=== PATIENT | female | born 1985 | race Caucasian/White ===

== ENCOUNTER 2019-01-04 05:02 | Inpatient (IN) | payer OTHER ==
[~2019-01-04 05:02] MED LIST: BICITRA 30 ML CUP PO SCH; CEFAZOLIN 2 GM-D5W BAG** 2 GM/50 ML ML IV SCH; Lactated Ringers 1,000 ML IV SCH; Pepcid 20 MG VIAL IV SCH; Reglan 10 MG/2 ML IV SCH
[2019-01-04 05:39] LABS: Hematocrit 36.3 % (35-47); Hemoglobin 11.9 gm/dl (12.0-16.0); Mean Cell Volume 90.8 fl (78-100); Mean Corpuscular Hgb Concent. 32.8 g/dl (32-36); Mean Platelet Volume 13.1 fl (6-9.5); Platelet Count 193 K/mm3 (150-450); Red Cell Distribution Width 13.7 % (11.5-14.0); White Blood Count 9.7 K/mm3 (4.0-10.5)
[2019-01-04 05:44] LABS: Mean Corpuscular Hemoglobin 29.7 pg (26-32)
[2019-01-04 05:50] LABS: Appearance CLOUDY (CLEAR); Bacteria MODERATE /HPF (NEGATIVE); Bilirubin NEGATIVE (NEGATIVE); Blood NEGATIVE Ery/ul (0-5); Epithelial Cells FEW /HPF (FEW); Glucose NEGATIVE (NEGATIVE); Ketones NEGATIVE (NEGATIVE); Leukocyte Esterase LARGE (NEGATIVE); Mucus SLIGHT /HPF (NEGATIVE); Nitrite NEGATIVE (NEGATIVE); Protein,Urine Dip 30 (Negative); Specific Gravity 1.021 (1.005-1.025); Urobilinogen NEGATIVE mg/dL (0-1); WBC 26-50 /HPF (0-5)
[2019-01-04 05:54] LABS: INR 0.89 (0.8-3.0); PROTIME 10.3 SECONDS (9.95-12.35)
[2019-01-04 05:55] LABS: Amphetamine,Urine NEGATIVE (NEGATIVE); Barbiturate,Urine NEGATIVE (NEGATIVE); Benzodiazepine,Urine NEGATIVE (NEGATIVE); Cocaine,Urine NEGATIVE (NEGATIVE); Methadone,Urine NEGATIVE (NEGATIVE); Opiate,Urine NEGATIVE (NEGATIVE); PCP,Urine NEGATIVE (NEGATIVE); THC,Urine NEGATIVE (NEGATIVE)
[2019-01-04 05:57] LABS: PTT 26.1 SECONDS (25.3-37.0)
[2019-01-04] MEDS ORDERED: Sodium Chloride 0.9% 10 ML FLUSH Syringe IJ PRN (06:00)
[2019-01-04] MEDS ORDERED: Lactated Ringers 1,000 ML IV SCH (06:00)
[2019-01-04 06:19] LABS: Slide Review YES
[2019-01-04] MEDS ORDERED: Lactated Ringers 1,000 ML IV ONE (06:21)
[2019-01-04 06:27] LABS: ABO TYPING O; Antibody Screen NEGATIVE (NEGATIVE); RH TYPING POSITIVE
[2019-01-04] MEDS ORDERED: Phenergan 25 MG INJ IM PRN (07:00)
[2019-01-04] MEDS ORDERED: TYLENOL EXTRA STRENGTH 500 MG PO PRN (07:00)
[2019-01-04] MEDS ORDERED: Zofran 4 MG/2 ML VIAL IV PRN (08:00)
[2019-01-04] MEDS ORDERED: MORPHINE SULFATE 2 MG INJ IV PRN (08:00)
[2019-01-04] MEDS ORDERED: Anucort-HC SUPPOSITORY PR PRN (08:00)
[2019-01-04] MEDS ORDERED: Dermoplast Spray TP PRN (08:00)
[2019-01-04] MEDS ORDERED: Narcan 0.4 MG/ML IV PRN (08:00)
[2019-01-04] MEDS ORDERED: Dulcolax 10 MG SUPP PR PRN (08:00)
[2019-01-04] MEDS ORDERED: BENADRYL 50 MG/ML IV PRN (08:00)
[2019-01-04] MEDS ORDERED: LANSINOH 40 GM TOP PRN (08:00)
[2019-01-04] MEDS ORDERED: CORTISONE 1% CREAM TP PRN (08:00)
[2019-01-04] MEDS ORDERED: CLARITIN 10 MG PO PRN (08:00)
[2019-01-04] MEDS ORDERED: Nubain 10 MG/ML IV PRN (08:00)
[2019-01-04] MEDS ORDERED: DEMEROL 50 MG IV PRN (08:00)
[2019-01-04] MEDS ORDERED: TUCKS TP PRN (08:00)
[2019-01-04] MEDS ORDERED: DEMEROL 50 MG ONE (08:18)
--- NOTE | 2019-01-04 08:55 | OP ---
SURGERY DATE/TIME: 01/04/2019 0703 PREOPERATIVE DIAGNOSES: 1) Term intrauterine . 2) History of prior section. POSTOPERATIVE DIAGNOSES: 1) Term intrauterine . 2) History of prior section. PROCEDURE: Repeat low transverse section. SURGEON: Edin York M.D. ESTIMATED BLOOD LOSS: 300 cc. IV FLUIDS: 1200 cc of crystalloid. URINE OUTPUT: 5 ml of clear straw-colored urine. ANESTHESIA: Spinal by Kurtis Torres CRNA. SPECIMENS: None. DESCRIPTION OF PROCEDURE: After informed written consent was obtained, the patient was taken to the operating room. She underwent spinal anesthesia and was prepped and draped in the usual sterile fashion. A skin incision was made by knife and carried down through the subcutaneous fat to the level of the fascia. The fascia was nicked on both sides of the midline and extended in horizontal fashion using curved Spencer scissors. The superior free edge of the fascia was grasped with Herman clamps and the underlying rectus muscles were dissected free. The same was repeated inferiorly. The peritoneal cavity was then opened and extended in horizontal fashion. Bladder blade was inserted and bladder flap was created and reflected over the lower uterine segment. A horizontal uterine incision was made by knife and carried down to the level of the amniotic membranes which were carefully artificially ruptured and extended horizontally. A viable male infant was delivered from the vertex presentation. Oropharynx and nares was bulb suctioned free. He had a strong cry on the field. The cord was clamped and cut and he was handed off to the awaiting nursery team. The placenta was manually extracted from the uterus and the uterus was exteriorized. The uterine cavity was sponge curetted clean with lap sponge. The uterine incision was closed with #1 chromic in a running locked fashion. Good closure and good hemostasis were achieved. The posterior cul-de-sac was suctioned free of blood and clot. Moist lap sponge was used to cleanse posterior cul-de-sac and the uterus was returned to the peritoneal cavity. Lateral gutters were wiped free of blood and clot. Then the uterine incision was inspected and noted to have good closure and good hemostasis. Next, the fascia was closed with 0 Vicryl in a running fashion. Good closure and good hemostasis were achieved. The subcutaneous fat was irrigated with warm, sterile saline. Interrupted 2-0 Vicryl sutures were placed in the subcutaneous fat to close the space. Finally the skin layer was closed with 4-0 undyed Vicryl in a running subcuticular fashion. Steri-Strips and occlusive dressing were placed over the incision. The patient was transferred to the recovery in good condition.
[2019-01-04] MEDS ORDERED: Ambien 10 MG PO PRN (09:00)
[2019-01-04] MEDS: Dextrose 5%-Lr IV Solution 1000 ML 1,000 ML IV SCH ×2 (09:43→17:24)
[2019-01-04] MEDS ORDERED: ASTRAMORPH IJ ONE (10:09)
[2019-01-04] MEDS ORDERED: Zofran 4 MG/2 ML VIAL IV ONE (14:16)
[2019-01-04] MEDS ORDERED: Decadron 4 MG INJ IV ONE (14:16)
[2019-01-04] MEDS ORDERED: Pitocin 10 UNITS/ML IV ONE (14:16)
[2019-01-04] MEDS ORDERED: TORAdol 30 mg Injection IJ ONE (14:16)
[2019-01-04] MEDS ORDERED: LIDOCAINE HCL 2% 100 MG/5 ML IJ ONE (14:16)
[2019-01-04] MEDS ORDERED: Astramorph-Pf 5 MG/10 ML IJ ONE (14:16)
[2019-01-04] MEDS ORDERED: Adacel Vial IM ONE (18:00)
[2019-01-04] MEDS: MOTRIN 400 MG PO PRN (18:26)
[2019-01-04] MEDS: Colace 100 MG PO SCH (22:12)
[2019-01-04] MEDS: PERCOCET TABLET 5/325MG PO PRN (22:13)
[2019-01-05 04:07] VITALS: O2SAT 97
[2019-01-05] MEDS: PERCOCET TABLET 5/325MG PO PRN (05:08)
[2019-01-05 05:56] LABS: BASOPHIL % 0.2 % (0.0-0.4); Basophil (Absolute #) 0.02 (0-0.4); Eosinophil % 0.2 % (0.00-5.0); Eosinophil (Absolute #) 0.02 (0-0.5); Granulocyte Absolute (ANC) 10.11 (1.4-6.9); Granulocytes % 75.8 % (36.0-66.0); Hematocrit 30.9 % (35-47); Lymphocyte (Absolute #) 2.19 (1.0-4.6); Lymphocytes % 16.4 % (24.0-44.0); Mean Cell Volume 92.5 fl (78-100); Mean Corpuscular Hemoglobin 29.9 pg (26-32); Mean Corpuscular Hgb Concent. 32.4 g/dl (32-36); Mean Platelet Volume 13.5 fl (6-9.5); Monocyte (Absolute #) 0.98 (0.0-1.3); Monocytes % 7.4 % (0.0-12.0); Platelet Count 164 K/mm3 (150-450); Red Blood Count 3.34 M/mm3 (4.1-5.4); Red Cell Distribution Width 13.7 % (11.5-14.0); White Blood Count 13.3 K/mm3 (4.0-10.5)
[2019-01-05] MEDS: Colace 100 MG PO SCH ×2 (09:31→22:59)
[2019-01-05] MEDS: FERREX 150 PO SCH (09:31)
[2019-01-05] MEDS: MOTRIN 400 MG PO PRN ×2 (09:32→22:59)
[2019-01-05] MEDS: NORCO 5/325 MG PO PRN ×2 (14:51→20:11)
[2019-01-06] MEDS: NORCO 5/325 MG PO PRN ×2 (02:26→08:44)
[2019-01-06] MEDS: MOTRIN 400 MG PO PRN (05:06)
--- NOTE | 2019-01-06 08:31 | PCM.DS ---
Discharge Summary Date of Admission: 01/04/19 05:02 Admitting Physician: VIVIENNE DIAZ Consults: Consults on Case 01/04/19 00:01 Notify Anesthesia Provider ROUTINE Notify Physician OF ADMISSION Primary Care Provider: VIVIENNE DIAZ Allergies Allergies No Known Drug Allergies Allergy (Verified 01/04/19 05:17) Hospital Summary - Hospital Course Hospital Course: had repeat on 01/04/19, tolerating po, mild lochia and pain is controlled at this time. she is breasfeeding and well bonded - Vitals & Intake/Output Vital Signs: Vital Signs Temperature 98.0 F 01/06/19 02:00 Pulse Rate 86 01/06/19 02:00 Respiratory Rate 18 01/06/19 02:00 Blood Pressure 134/85 01/06/19 02:00 O2 Sat by Pulse Oximetry 97 01/05/19 05:00 Intake & Output: Intake & Output 01/03/19 01/04/19 01/05/19 01/06/19 11:59 11:59 11:59 11:59 Output Total 4350 Balance -4350 Weight 86.183 kg - Lab Result Diagrams: 01/05/19 05:20 Micro Results-Entire Visit: Microbiology 01/04/19 07:25 Urine Culture - Final Clean Catch Midstream NO GROWTH - Procedures and Test Procedures and Tests throughout Hospitalization: Therapy Orders & Screens 01/04/19 12:28 Standby Routine Comment: Diagnosis: IUP R C/S Discharge Exam General Appearance: no apparent distress, alert Respiratory Exam: normal breath sounds, lungs clear, No respiratory distress Cardiovascular Exam: regular rate/rhythm, normal heart sounds Gastrointestinal/Abdomen Exam: soft, other (incision clean,dry, intact), No tenderness, No mass Extremity Exam: normal inspection, normal range of motion Final Diagnosis/Problem List - Final Discharge Diagnosis/Problem (1) delivery delivered Current Visit: Yes Status: Acute (2) Mother currently breast-feeding Current Visit: Yes Status: Acute - Discharge Disposition: Home, Self-Care Condition: Stable Prescriptions: New Hydrocodone Bit/Acetaminophen [[place] 7.5-325 Tablet] 1 each PO Q4-6HPRN PRN # 30 tablet PRN Reason: Pain Continue Vits W-Ca,Fe,FA(<1Mg) [] 1 tab PO DAILY Discontinued D-Methorphan/PE/Acetaminophen [Tylenol Cold Max Day Caplet] 1 tab PO Q4HPRN PRN PRN Reason: Sinus Drainage Diphenhydramine HCl 12.5 mg/5* [Benadryl 12.5 mg/5 ml] 1 tab PO HS PRN PRN Reason: Sleep Follow up with: VIVIENNE DIAZ MD [Primary Care Provider] - 1 Week
[2019-01-06] MEDS: Colace 100 MG PO SCH (08:43)
[2019-01-06] MEDS: FERREX 150 PO SCH (08:44)
[2019-01-06 10:55] VITALS: BP 148/90; PULSE 84
== END 2019-01-06 10:10 | disposition home or self-care (01) | DRG 788 ==
LOC: OB 05:02
PROVIDERS: ADMIT Family Medicine; ATTEND Family Medicine
PROC: 10D00Z1 Extraction of Products of Conception, Low, Open Approach (ICD-10-PCS; principal; 2019-01-04)
DX: O34.211 Maternal care for low transverse scar from previous cesarean delivery (principal); Z3A.39 39 weeks gestation of pregnancy; Z37.0 Single live birth
CPT/HCPCS: 36415; 64488; 76942; 80307; 81001; 85025; 85027; 85610; 85730; 86850; 86900; 86901; 87086; 94799; J0690; J1100; J1885; J2175; J2274; J2405; J2590; L0625; A9270-GY

== ENCOUNTER 2021-02-06 21:52 | Observation (INO) | payer OTHER ==
[2021-02-06] MEDS ORDERED: Sodium Chloride 0.9% 1000 ML 1,000 ML ONE (22:10)
[2021-02-06] MEDS ORDERED: Magnesium 1 Gm / 100 Ml D5W*** 200 ML IV ONE (22:17)
[2021-02-06] MEDS ORDERED: BABY ASPIRIN 81 MG CHEW PO ONE (22:27)
[2021-02-06] MEDS ORDERED: Sodium Chloride 0.9% 1000 ML 1,000 ML IV STA (22:27)
[2021-02-06] MEDS: Magnesium 1 Gm / 100 Ml D5W*** 100 ML IV SCH ×2 (22:44→23:23)
[2021-02-06 22:46] LABS: Absolute Neutrophil Ct (ANC) 7.41 (1.4-6.9); BASOPHIL % 0.3 % (0.0-0.4); Basophil (Absolute #) 0.03 (0-0.4); Eosinophil % 1.6 % (0.00-5.0); Eosinophil (Absolute #) 0.19 (0-0.5); Hematocrit 42.5 % (35-47); Hemoglobin 13.5 gm/dl (12.0-16.0); Lymphocyte (Absolute #) 3.36 (1.0-4.6); Mean Cell Volume 91.6 fl (78-100); Mean Corpuscular Hemoglobin 29.1 pg (26-32); Mean Corpuscular Hgb Concent. 31.8 g/dl (32-36); Mean Platelet Volume 11.3 fl (7.5-11.0); Monocyte (Absolute #) 1.01 (0.0-1.3); Monocytes % 8.4 % (0.0-12.0); Neutrophil % 61.7 % (36.0-66.0); Platelet Count 308 K/mm3 (150-450); Red Blood Count 4.64 M/mm3 (4.1-5.4); Red Cell Distribution Width 14.3 % (11.5-14.0)
[2021-02-06 22:54] LABS: INR 0.98 (0.8-3.0); PROTIME 11.1 SECONDS (9.95-12.35)
[2021-02-06 22:57] LABS: PTT 34.1 SECONDS (25.3-37.0)
[2021-02-06 23:05] LABS: D-DIMER QUANTITATIVE < 215 ng/mL (215-500)
[2021-02-06 23:09] LABS: ALBUMIN 4.6 g/dL (3.5-5.0); ALKALINE PHOSPHATASE 74 U/L (38-126); ANION GAP 12.8 MEQ/L (5-15); BLOOD UREA NITROGEN 12 mg/dL (7-17); CHLORIDE 99 mmol/L (98-107); Carbon Dioxide 29 mmol/L (22-30); Creatinine 1 0.69 mg/dL (0.52-1.04); EST GLOMERULAR FILTRATION RATE > 60.0 ML/MIN; Glucose 98 mg/dL (74-106); MAGNESIUM 2.1 mg/dL (1.6-2.3); NT PRO BNP 56.9 pg/mL (0-450); Potassium 3.2 mmol/L (3.5-5.1); SGOT/AST 23 U/L (14-36); SGPT/ALT 23 U/L (0-35); SODIUM 138 mmol/L (137-145); Total Protein 7.7 g/dL (6.3-8.2)
[2021-02-06] MEDS ORDERED: CARDIZEM DRIP 100 MG/100 ML D5W 100 ML IV PRN (23:15)
[2021-02-06] MEDS ORDERED: Klor Con 10 MEQ PO ONE ×2 (23:15→23:28)
--- NOTE | 2021-02-06 23:42 | ERPHSYRPT ---
- History of Present Illness Time Seen by Provider: 02/06/21 21:59 Historian: patient Exam Limitations: no limitations Patient Subjective Stated Complaint: "My heart is pounding." Triage Nursing Assessment: Patient reported having palpitations and chest pressure at home. Denied past history. Denied true pain stating "it's more like a fluttering." Denied dizziness, headache, shortness of breath, loss of consciousness. Denied similar events. Physician History: 35 years old female presented in the ER with chief complaint of sudden onset palpitation and chest pressure prior to arrival. Patient report her heart rate was bouncing between 80-1 60s with minimal shortness of breath at times. She is feeling weird and tired. Denies any fever or chills. Denies any history of thyroid problems. Does not report taking excessive caffeinated/energy drinks than usual. No history of atrial fibrillation/flutter. Timing/Duration: today, sudden Activities at Onset: rest Quality: pressure Location: substernal Chest Pain Radiation: no radiation Severity of Pain-Max: mild Severity of Pain-Current: mild Modifying Factors: Improves With: nothing Associated Symptoms: palpitations Prior Chest Pain/Cardiac Workup: no prior chest pain, no prior cardiac workup Nitro Today/Relief: no nitro taken today Aspirin Treatment Today: no aspirin today Allergies/Adverse Reactions: No Known Drug Allergies Allergy (Verified 02/06/21 22:12) Home Medications: Escitalopram Oxalate 10 mg [Lexapro 10 MG] 1 tab PO DAILY 02/06/21 [History] Hx Tetanus, Diphtheria Vaccination/Date Given: Yes Hx Influenza Vaccination/Date Given: Yes Hx Pneumococcal Vaccination/Date Given: No Travel Risk - International Travel Have you traveled outside of the country in past 3 weeks: No - Coronavirus Screening Are you exhibiting any of the following symptoms?: No Close contact with a COVID-19 positive Pt in past 14-21 Days: No - Review of Systems Constitutional: No Symptoms Eyes: No Symptoms Ears, Nose, & Throat: No Symptoms Respiratory: No Symptoms Cardiac: Palpitations Abdominal/Gastrointestinal: No Symptoms Genitourinary Symptoms: No Symptoms Musculoskeletal: No Symptoms Skin: No Symptoms Neurological: No Symptoms Psychological: No Symptoms Endocrine: No Symptoms Hematologic/Lymphatic: No Symptoms Immunological/Allergic: No Symptoms - Past Medical History Pertinent Past Medical History: No Musculoskeletal History: No Pertinent History GI Medical History: Irritable Bowel History: No Pertinent History Psycho-Social History: Anxiety Female Reproductive Disorders: No Pertinent History - Past Surgical History Past Surgical History: Yes Neuro Surgical History: No Pertinent History Cardiac: No Pertinent History Respiratory: No Pertinent History Gastrointestinal: Cholecystectomy Female Surgical History: Section Other Surgical History: tonsils - Social History Smoking Status: Former smoker How long have you smoked: 10 Years Exposure to second hand smoke: No Alcohol Use: Socially Drug Use: none Patient Lives Alone: No Significant Family History: no pertinent family hx - Female History Hx Now: (unkn) - Nursing Vital Signs Nursing Vital Signs: Initial Vital Signs Temperature 98.5 F 02/06/21 21:52 Pulse Rate 180 H 02/06/21 21:52 Respiratory Rate 20 02/06/21 21:52 Blood Pressure 136/89 02/06/21 21:52 O2 Sat by Pulse Oximetry 100 02/06/21 21:52 Pain Scale Pain Intensity 0 - Physical Exam General Appearance: no apparent distress, alert, anxiety Eye Exam: PERRL/EOMI, eyes nml inspection Ears, Nose, Throat Exam: normal ENT inspection, TMs normal, pharynx normal Neck Exam: normal inspection, non-tender, supple, full range of motion Respiratory Exam: normal breath sounds Cardiovascular Exam: tachycardia, irregular Back Exam: normal inspection, normal range of motion Extremity Exam: normal inspection, normal range of motion Neurologic Exam: alert, oriented x 3, cooperative, member certification manager II-XII nml as tested Skin Exam: normal color SpO2 Interpretation: normal SpO2: 100 O2 Delivery: Room Air - Course EKG Interpreted by Me: RATE ([id number]), Sinus Tach, NORMAL AXIS, NORMAL INTERVALS, NORMAL QRS (2nd EKG; rate 148. Irregular, ST depression in lateral leads......... third EKG. Rate 145, irregular, ST depression in lateral leads.) Ordered Tests: Medication Summary Discontinued Medications Generic Name Dose Route Start Last Admin Trade Name Freq PRN Reason Stop Dose Admin Acetaminophen 650 mg 02/07/21 03:39 Tylenol 325 Mg PO 03/09/21 03:38 Q4H PRN PRN PAIN AND/OR FEVER Aspirin 324 mg 02/06/21 22:27 02/06/21 22:47 Baby Aspirin 81 Mg Chew PO 02/06/21 22:28 324 mg STAT ONE Administration Escitalopram Oxalate 10 mg 02/07/21 10:00 02/07/21 10:21 Lexapro 10 Mg PO 03/09/21 09:59 Not Given DAILY MARCUS Escitalopram Oxalate 10 mg 02/07/21 22:00 Lexapro 10 Mg PO 03/09/21 21:59 HS MARCUS Sodium Chloride Confirm 02/06/21 22:10 Sodium Chloride 0.9% 1000 Ml Administered 02/06/21 22:11 Dose 1,000 mls @ ud .ROUTE .STK-MED ONE Magnesium Sulfate/Dextrose Confirm 02/06/21 22:17 Magnesium 1 Gm / 100 Ml D5w Administered 02/06/21 22:18 Dose 200 mls @ ud IV .STK-MED ONE Sodium Chloride 1,000 mls @ 999 mls/hr 02/06/21 22:27 02/06/21 23:55 Sodium Chloride 0.9% 1000 Ml IV 02/06/21 23:27 Infused .Q1H1M STA Infusion Magnesium Sulfate/Dextrose 100 mls @ 100 mls/hr 02/06/21 22:45 02/06/21 23:23 Magnesium 1 Gm / 100 Ml D5w IV 02/07/21 00:44 100 mls/hr Q1H MARCUS Administration Diltiazem HCl 100 mls @ 5 mls/hr 02/06/21 23:15 02/07/21 06:14 Cardizem Drip 100 Mg/100 Ml D5w IV 03/08/21 23:14 5 mg/hr .Q20H PRN 5 mls/hr HEART RATE/ A-FIB Titration Protocol 5 MG/HR Sodium Chloride 1,000 mls @ 125 mls/hr 02/06/21 23:45 02/07/21 06:14 Sodium Chloride 0.9% 1000 Ml IV 03/08/21 23:44 125 mls/hr .Q8H MARCUS Infusion Metoprolol Succinate 25 mg 02/07/21 07:00 02/07/21 07:45 Toprol-Xl 25mg Tablets PO 02/07/21 07:01 25 mg STAT ONE Administration Pantoprazole Sodium 40 mg 02/07/21 10:00 02/07/21 10:17 Protonix 40 Mg Iv IV 03/09/21 09:59 40 mg Q24H10 MARCUS Administration Potassium Chloride 40 meq 02/06/21 23:15 02/06/21 23:30 Klor Con 10 Meq PO 02/06/21 23:16 40 meq STAT ONE Administration Potassium Chloride Confirm 02/06/21 23:28 Klor Con 10 Meq Administered 02/06/21 23:29 Dose 40 meq PO .STK-MED ONE Lab/Rad Data: Laboratory Result Diagrams 02/06/21 22:04 02/06/21 22:04 Laboratory Results 02/07/21 02/06/21 02/06/21 Range/Units 00:35 22:04 22:04 WBC (4.0-10.5) K/mm3 RBC (4.1-5.4) M/mm3 Hgb (12.0-16.0) gm/dl Hct (35-47) % MCV (78-100) fl MCH (26-32) pg MCHC (32-36) g/dl RDW (11.5-14.0) % Plt Count (150-450) K/mm3 MPV (7.5-11.0) fl Gran % (36.0-66.0) % Eos # (Auto) (0-0.5) Absolute Lymphs (auto) (1.0-4.6) Absolute Monos (auto) (0.0-1.3) Lymphocytes % (24.0-44.0) % Monocytes % (0.0-12.0) % Eosinophils % (0.00-5.0) % Basophils % (0.0-0.4) % Absolute Granulocytes (1.4-6.9) Basophils # (0-0.4) PT (9.95-12.35) SECONDS INR (0.8-3.0) APTT (25.3-37.0) SECONDS D-Dimer (215-500) ng/mL Sodium (137-145) mmol/L Potassium (3.5-5.1) mmol/L Chloride (98-107) mmol/L Carbon Dioxide (22-30) mmol/L Anion Gap (5-15) MEQ/L BUN (7-17) mg/dL Creatinine (0.52-1.04) mg/dL Estimated GFR ML/MIN Glucose (74-106) mg/dL Calcium (8.4-10.2) mg/dL Magnesium (1.6-2.3) mg/dL Total Bilirubin (0.2-1.3) mg/dL AST (14-36) U/L ALT (0-35) U/L Alkaline Phosphatase (38-126) U/L Troponin I < 0.012 (0.000-0.034) ng/mL NT-Pro-B Natriuret Pep (0-450) pg/mL Serum Total Protein (6.3-8.2) g/dL Albumin (3.5-5.0) g/dL TSH 3rd Generation 1.420 (0.47-4.68) mIU/L Influenza Type A Ag NEGATIVE (NEGATIVE) Influenza Type B Ag NEGATIVE (NEGATIVE) RSV (PCR) NEGATIVE (Negative) SARS-CoV-2 (PCR) NEGATIVE (NEGATIVE) 02/06/21 02/06/21 02/06/21 Range/Units 22:04 22:04 22:04 WBC 12.0 H (4.0-10.5) K/mm3 RBC 4.64 (4.1-5.4) M/mm3 Hgb 13.5 (12.0-16.0) gm/dl Hct 42.5 (35-47) % MCV 91.6 (78-100) fl MCH 29.1 (26-32) pg MCHC 31.8 L (32-36) g/dl RDW 14.3 H (11.5-14.0) % Plt Count 308 (150-450) K/mm3 MPV 11.3 H (7.5-11.0) fl Gran % 61.7 (36.0-66.0) % Eos # (Auto) 0.19 (0-0.5) Absolute Lymphs (auto) 3.36 (1.0-4.6) Absolute Monos (auto) 1.01 (0.0-1.3) Lymphocytes % 28.0 (24.0-44.0) % Monocytes % 8.4 (0.0-12.0) % Eosinophils % 1.6 (0.00-5.0) % Basophils % 0.3 (0.0-0.4) % Absolute Granulocytes 7.41 H (1.4-6.9) Basophils # 0.03 (0-0.4) PT 11.1 (9.95-12.35) SECONDS INR 0.98 (0.8-3.0) APTT 34.1 (25.3-37.0) SECONDS D-Dimer < 215 L (215-500) ng/mL Sodium 138 (137-145) mmol/L Potassium 3.2 L (3.5-5.1) mmol/L Chloride 99 (98-107) mmol/L Carbon Dioxide 29 (22-30) mmol/L Anion Gap 12.8 (5-15) MEQ/L BUN 12 (7-17) mg/dL Creatinine 0.69 (0.52-1.04) mg/dL Estimated GFR > 60.0 ML/MIN Glucose 98 (74-106) mg/dL Calcium 10.0 (8.4-10.2) mg/dL Magnesium 2.1 (1.6-2.3) mg/dL Total Bilirubin 0.20 (0.2-1.3) mg/dL AST 23 (14-36) U/L ALT 23 (0-35) U/L Alkaline Phosphatase 74 (38-126) U/L Troponin I (0.000-0.034) ng/mL NT-Pro-B Natriuret Pep 56.9 (0-450) pg/mL Serum Total Protein 7.7 (6.3-8.2) g/dL Albumin 4.6 (3.5-5.0) g/dL TSH 3rd Generation (0.47-4.68) mIU/L Influenza Type A Ag (NEGATIVE) Influenza Type B Ag (NEGATIVE) RSV (PCR) (Negative) SARS-CoV-2 (PCR) (NEGATIVE) - Progress Progress: improved Air Movement: good Progress Note: 02/07/21 00:21 35 years old is evaluated for palpitations and chest pressure. Patient was in sinus tach on presentation. Repeated EKG showed questionable paroxysmal A. fib/flutter but she is converting back to sinus quickly. She is given IV fluid bolus and 2 g of mag. Her heart rate was jumping between 90-1 60 and I have started her on Cardizem and her heart rate is currently in the 90s and repeat EKG is normal sinus rhythm. Work-up showed white count of 12, mildly low potassium and is given replacement with negative troponins and D-dimers. Discussed with Dr. York, recommended cardiology consult. I have discussed with [facility] cardiology Dr. Block who is okay either way patient in here or transferring. I have discussed with patient who wants to stay here, I have discussed again with Dr. York and patient is admitted here. Blood Culture(s) Obtained: No Antibiotics given: No Discussed with DrBecky: Jef Will see patient in: hospital (observation) Counseled pt/family regarding: lab results, diagnosis, rad results - Departure Departure Disposition: Observation Clinical Impression: Palpitations Condition: Stable Critical Care Time: Yes Critical Care Time(excluding separately billable procedures): Critical 30-74 mins
[2021-02-06] MEDS ORDERED: Sodium Chloride 0.9% 1000 ML 1,000 ML IV SCH (23:45)
[2021-02-07 01:16] LABS: INFLUENZA A NEGATIVE (NEGATIVE); INFLUENZA B NEGATIVE (NEGATIVE); RESPIRATORY SYNCTIAL VIRUS NEGATIVE (Negative)
[2021-02-07] MEDS ORDERED: TYLENOL 325 MG PO PRN (03:39)
[2021-02-07 05:04] LABS: ALBUMIN 3.9 g/dL (3.5-5.0); ALKALINE PHOSPHATASE 61 U/L (38-126); ANION GAP 8.1 MEQ/L (5-15); Absolute Neutrophil Ct (ANC) 4.98 (1.4-6.9); BASOPHIL % 0.4 % (0.0-0.4); BLOOD UREA NITROGEN 9 mg/dL (7-17); Basophil (Absolute #) 0.03 (0-0.4); CHLORIDE 105 mmol/L (98-107); Calcium 8.7 mg/dL (8.4-10.2); Carbon Dioxide 30 mmol/L (22-30); Creatinine 1 0.71 mg/dL (0.52-1.04); EST GLOMERULAR FILTRATION RATE > 60.0 ML/MIN; Eosinophil % 1.8 % (0.00-5.0); Eosinophil (Absolute #) 0.15 (0-0.5); Glucose 102 mg/dL (74-106); Hematocrit 39.8 % (35-47); Hemoglobin 12.5 gm/dl (12.0-16.0); Lymphocytes % 29.2 % (24.0-44.0); Mean Corpuscular Hemoglobin 29.2 pg (26-32); Mean Corpuscular Hgb Concent. 31.4 g/dl (32-36); Mean Platelet Volume 11.2 fl (7.5-11.0); Monocyte (Absolute #) 0.67 (0.0-1.3); Monocytes % 8.1 % (0.0-12.0); Neutrophil % 60.5 % (36.0-66.0); Platelet Count 259 K/mm3 (150-450); Red Blood Count 4.28 M/mm3 (4.1-5.4); Red Cell Distribution Width 14.2 % (11.5-14.0); SGOT/AST 19 U/L (14-36); SGPT/ALT 20 U/L (0-35); SODIUM 138 mmol/L (137-145); Total Protein 6.6 g/dL (6.3-8.2); White Blood Count 8.2 K/mm3 (4.0-10.5)
--- NOTE | 2021-02-07 06:45 | PCM.HP ---
History of Present Illness - Chief Complaint Chief Complaint: palpitations History of Present Illness: is a 35 year old female who developed sudden onset of palpitations and felt heavy in her chest while resting on her couch last night, she noted her heart rate was 170's, attempted valsalva with no improvement so came to ER. She feels normal now with heart rate controlled on cardizem drip, she has no prior history of cardiac issues or rhythm problems. She has no complaints today. no major changes in caffeine intake, usually has 1 serving/day on average. - Review of Systems Constitutional: No Fever, No Chills Ears, Nose, & Throat: No Symptoms Cardiac: Palpitations Abdominal/Gastrointestinal: No Abdominal Pain, No Nausea, No Vomiting, No Diarrhea Skin: No Rash Neurological: No Dizziness, No Focal Weakness, No Sensory Changes Psychological: No Symptoms All Other Systems: Reviewed and Negative Medications & Allergies Home Medications: Home Medication List Dextroamphetamine/Amphetamine [Adderall Xr 30 mg Capsule] 1 tab PO DAILY 02/06/21 [History Confirmed 02/07/21] Escitalopram Oxalate 10 mg [Lexapro 10 MG] 1 tab PO DAILY 02/06/21 [History Confirmed 02/07/21] Allergies/Adverse Reactions: Allergies Allergy/AdvReac Type Severity Reaction Status Date / Time No Known Drug Allergies Allergy Verified 02/06/21 22:12 - Past Medical History Past Medical History: No Neurological History: No Pertinent History Cardiac History: No Pertinent History Respiratory History: No Pertinent History Endocrine Medical History: No Pertinent History Musculoskelatal History: No Pertinent History GI Medical History: Irritable Bowel History: No Pertinent History Pyscho-Social History: Anxiety Reproductive Disorders: No Pertinent History Comment: post depression - Female History Hx Last Menstrual Period: 02/06/2021 Are you now?: No (unkn) - Past Surgical History Past Surgical History: Yes Neuro Surgical History: No Pertinent History Cardiac History: No Pertinent History Respiratory Surgery: No Pertinent History GI Surgical History: Cholecystectomy Female Surgical History: Section Other Surgical History: tonsils - Social History Smoking Status: Former smoker How long have you smoked: 10 Years Exposure to second hand smoke: No Alcohol: Occasionally Drug Use: none Significant Family History: no pertinent family hx - Physical Exam Vital Signs: Vital Signs - 24 hr Temp Pulse Pulse Resp BP BP Pulse Ox 02/07/21 06:00 89 21 125/76 97 02/07/21 05:00 98.4 F 89 19 118/82 98 02/07/21 04:05 97.6 F 89 18 122/81 100 02/07/21 03:25 71 110/75 96 02/07/21 03:23 71 110/75 96 02/07/21 02:12 72 108/64 97 02/07/21 01:12 75 127/88 98 02/07/21 00:25 100 02/07/21 00:07 88 139/79 100 02/06/21 23:40 88 16 114/97 02/06/21 23:06 111 H 130/88 100 02/06/21 21:52 98.5 F 180 H 180 H 20 136/89 100 General Appearance: no apparent distress, alert Neurologic Exam: alert, oriented x 3, cooperative, normal mood/affect, nml cerebellar function, nml station & gait, sensation nml, No motor deficits Respiratory Exam: normal breath sounds, lungs clear, No respiratory distress Cardiovascular Exam: regular rate/rhythm, normal heart sounds, normal peripheral pulses Gastrointestinal/Abdomen Exam: soft, normal bowel sounds, No tenderness, No mass Extremity Exam: normal inspection, normal range of motion, pelvis stable Skin Exam: normal color, warm, dry, No rash Results - Labs Lab/Micro Results: Lab Results-Last 24 Hours 02/06/21 02/06/21 02/06/21 Range/Units 22:04 22:04 22:04 WBC 12.0 H (4.0-10.5) K/mm3 RBC 4.64 (4.1-5.4) M/mm3 Hgb 13.5 (12.0-16.0) gm/dl Hct 42.5 (35-47) % MCV 91.6 (78-100) fl MCH 29.1 (26-32) pg MCHC 31.8 L (32-36) g/dl RDW 14.3 H (11.5-14.0) % Plt Count 308 (150-450) K/mm3 MPV 11.3 H (7.5-11.0) fl Gran % 61.7 (36.0-66.0) % Eos # (Auto) 0.19 (0-0.5) Absolute Lymphs (auto) 3.36 (1.0-4.6) Absolute Monos (auto) 1.01 (0.0-1.3) Lymphocytes % 28.0 (24.0-44.0) % Monocytes % 8.4 (0.0-12.0) % Eosinophils % 1.6 (0.00-5.0) % Basophils % 0.3 (0.0-0.4) % Absolute Granulocytes 7.41 H (1.4-6.9) Basophils # 0.03 (0-0.4) PT 11.1 (9.95-12.35) SECONDS INR 0.98 (0.8-3.0) APTT 34.1 (25.3-37.0) SECONDS D-Dimer < 215 L (215-500) ng/mL Sodium 138 (137-145) mmol/L Potassium 3.2 L (3.5-5.1) mmol/L Chloride 99 (98-107) mmol/L Carbon Dioxide 29 (22-30) mmol/L Anion Gap 12.8 (5-15) MEQ/L BUN 12 (7-17) mg/dL Creatinine 0.69 (0.52-1.04) mg/dL Estimated GFR > 60.0 ML/MIN Glucose 98 (74-106) mg/dL Calcium 10.0 (8.4-10.2) mg/dL Magnesium 2.1 (1.6-2.3) mg/dL Total Bilirubin 0.20 (0.2-1.3) mg/dL AST 23 (14-36) U/L ALT 23 (0-35) U/L Alkaline Phosphatase 74 (38-126) U/L Troponin I (0.000-0.034) ng/mL NT-Pro-B Natriuret Pep 56.9 (0-450) pg/mL Serum Total Protein 7.7 (6.3-8.2) g/dL Albumin 4.6 (3.5-5.0) g/dL TSH 3rd Generation (0.47-4.68) mIU/L Influenza Type A Ag (NEGATIVE) Influenza Type B Ag (NEGATIVE) RSV (PCR) (Negative) SARS-CoV-2 (PCR) (NEGATIVE) 02/06/21 02/06/21 02/07/21 Range/Units 22:04 22:04 00:35 WBC (4.0-10.5) K/mm3 RBC (4.1-5.4) M/mm3 Hgb (12.0-16.0) gm/dl Hct (35-47) % MCV (78-100) fl MCH (26-32) pg MCHC (32-36) g/dl RDW (11.5-14.0) % Plt Count (150-450) K/mm3 MPV (7.5-11.0) fl Gran % (36.0-66.0) % Eos # (Auto) (0-0.5) Absolute Lymphs (auto) (1.0-4.6) Absolute Monos (auto) (0.0-1.3) Lymphocytes % (24.0-44.0) % Monocytes % (0.0-12.0) % Eosinophils % (0.00-5.0) % Basophils % (0.0-0.4) % Absolute Granulocytes (1.4-6.9) Basophils # (0-0.4) PT (9.95-12.35) SECONDS INR (0.8-3.0) APTT (25.3-37.0) SECONDS D-Dimer (215-500) ng/mL Sodium (137-145) mmol/L Potassium (3.5-5.1) mmol/L Chloride (98-107) mmol/L Carbon Dioxide (22-30) mmol/L Anion Gap (5-15) MEQ/L BUN (7-17) mg/dL Creatinine (0.52-1.04) mg/dL Estimated GFR ML/MIN Glucose (74-106) mg/dL Calcium (8.4-10.2) mg/dL Magnesium (1.6-2.3) mg/dL Total Bilirubin (0.2-1.3) mg/dL AST (14-36) U/L ALT (0-35) U/L Alkaline Phosphatase (38-126) U/L Troponin I < 0.012 (0.000-0.034) ng/mL NT-Pro-B Natriuret Pep (0-450) pg/mL Serum Total Protein (6.3-8.2) g/dL Albumin (3.5-5.0) g/dL TSH 3rd Generation 1.420 (0.47-4.68) mIU/L Influenza Type A Ag NEGATIVE (NEGATIVE) Influenza Type B Ag NEGATIVE (NEGATIVE) RSV (PCR) NEGATIVE (Negative) SARS-CoV-2 (PCR) NEGATIVE (NEGATIVE) 02/07/21 02/07/21 02/07/21 Range/Units 01:37 04:41 04:41 WBC 8.2 (4.0-10.5) K/mm3 RBC 4.28 (4.1-5.4) M/mm3 Hgb 12.5 (12.0-16.0) gm/dl Hct 39.8 (35-47) % MCV 93.0 (78-100) fl MCH 29.2 (26-32) pg MCHC 31.4 L (32-36) g/dl RDW 14.2 H (11.5-14.0) % Plt Count 259 (150-450) K/mm3 MPV 11.2 H (7.5-11.0) fl Gran % 60.5 (36.0-66.0) % Eos # (Auto) 0.15 (0-0.5) Absolute Lymphs (auto) 2.40 (1.0-4.6) Absolute Monos (auto) 0.67 (0.0-1.3) Lymphocytes % 29.2 (24.0-44.0) % Monocytes % 8.1 (0.0-12.0) % Eosinophils % 1.8 (0.00-5.0) % Basophils % 0.4 (0.0-0.4) % Absolute Granulocytes 4.98 (1.4-6.9) Basophils # 0.03 (0-0.4) PT (9.95-12.35) SECONDS INR (0.8-3.0) APTT (25.3-37.0) SECONDS D-Dimer (215-500) ng/mL Sodium (137-145) mmol/L Potassium (3.5-5.1) mmol/L Chloride (98-107) mmol/L Carbon Dioxide (22-30) mmol/L Anion Gap (5-15) MEQ/L BUN (7-17) mg/dL Creatinine (0.52-1.04) mg/dL Estimated GFR ML/MIN Glucose (74-106) mg/dL Calcium (8.4-10.2) mg/dL Magnesium (1.6-2.3) mg/dL Total Bilirubin (0.2-1.3) mg/dL AST (14-36) U/L ALT (0-35) U/L Alkaline Phosphatase (38-126) U/L Troponin I < 0.012 < 0.012 (0.000-0.034) ng/mL NT-Pro-B Natriuret Pep (0-450) pg/mL Serum Total Protein (6.3-8.2) g/dL Albumin (3.5-5.0) g/dL TSH 3rd Generation (0.47-4.68) mIU/L Influenza Type A Ag (NEGATIVE) Influenza Type B Ag (NEGATIVE) RSV (PCR) (Negative) SARS-CoV-2 (PCR) (NEGATIVE) 02/07/21 Range/Units 04:41 WBC (4.0-10.5) K/mm3 RBC (4.1-5.4) M/mm3 Hgb (12.0-16.0) gm/dl Hct (35-47) % MCV (78-100) fl MCH (26-32) pg MCHC (32-36) g/dl RDW (11.5-14.0) % Plt Count (150-450) K/mm3 MPV (7.5-11.0) fl Gran % (36.0-66.0) % Eos # (Auto) (0-0.5) Absolute Lymphs (auto) (1.0-4.6) Absolute Monos (auto) (0.0-1.3) Lymphocytes % (24.0-44.0) % Monocytes % (0.0-12.0) % Eosinophils % (0.00-5.0) % Basophils % (0.0-0.4) % Absolute Granulocytes (1.4-6.9) Basophils # (0-0.4) PT (9.95-12.35) SECONDS INR (0.8-3.0) APTT (25.3-37.0) SECONDS D-Dimer (215-500) ng/mL Sodium 138 (137-145) mmol/L Potassium 5.0 D (3.5-5.1) mmol/L Chloride 105 (98-107) mmol/L Carbon Dioxide 30 (22-30) mmol/L Anion Gap 8.1 (5-15) MEQ/L BUN 9 (7-17) mg/dL Creatinine 0.71 (0.52-1.04) mg/dL Estimated GFR > 60.0 ML/MIN Glucose 102 (74-106) mg/dL Calcium 8.7 (8.4-10.2) mg/dL Magnesium (1.6-2.3) mg/dL Total Bilirubin 0.20 (0.2-1.3) mg/dL AST 19 (14-36) U/L ALT 20 (0-35) U/L Alkaline Phosphatase 61 (38-126) U/L Troponin I (0.000-0.034) ng/mL NT-Pro-B Natriuret Pep (0-450) pg/mL Serum Total Protein 6.6 (6.3-8.2) g/dL Albumin 3.9 (3.5-5.0) g/dL TSH 3rd Generation (0.47-4.68) mIU/L Influenza Type A Ag (NEGATIVE) Influenza Type B Ag (NEGATIVE) RSV (PCR) (Negative) SARS-CoV-2 (PCR) (NEGATIVE) - Radiology Impressions Radiology Exams & Impressions: Radiology Procedures Category Date Time Status CHEST 1 VIEW (PORTABLE) Stat Exams 02/06/21 22:27 Taken Assessment/Plan (1) SVT (supraventricular tachycardia) Current Visit: Yes Status: Acute Assessment & Plan: patient currently sinus with rate less than 100 on cardizem at 5mg/hr, plan to give po metoprolol dose and stop drip. will consult [facility], no obvious cause and SVT was sustained. if returns may need to consider adenosine Code(s): I47.1 - SUPRAVENTRICULAR TACHYCARDIA
[2021-02-07] MEDS ORDERED: Toprol-Xl 25MG Tablets PO ONE (07:00)
--- NOTE | 2021-02-07 09:12 | XRAY ---
Indication: Palpitations. Comparison: None Portable chest demonstrates normal heart, lungs, and bony thorax.
[2021-02-07] MEDS ORDERED: PROTONIX 40 MG IV IV SCH (10:00)
[2021-02-07] MEDS ORDERED: Lexapro 10 MG PO SCH ×2 (10:00→22:00)
[2021-02-07 14:14] VITALS: BP 97/64; PULSE 69
--- NOTE | 2021-02-07 15:43 | PCM.DS ---
Discharge Summary Date of Admission: 02/07/21 01:36 Admitting Physician: VIVIENNE DIAZ Consults: Consults on Case 02/07/21 06:40 Consult Cardiology ROUTINE Primary Care Provider: VIVIENNE DIAZ Allergies Allergies No Known Drug Allergies Allergy (Verified 02/06/21 22:12) Hospital Summary - Hospital Course Hospital Course: patient arrived with new onset svt, converted with cardizem gtt, discontinued and changed to metoprolol - Vitals & Intake/Output Vital Signs: Vital Signs Temperature 97.9 F 02/07/21 12:00 Pulse Rate 69 02/07/21 14:00 Respiratory Rate 19 02/07/21 14:00 Blood Pressure 97/64 02/07/21 14:00 O2 Sat by Pulse Oximetry 98 02/07/21 14:00 Intake & Output: Intake & Output 02/05/21 02/06/21 02/07/21 02/08/21 11:59 11:59 11:59 11:59 Intake Total 1061 240 Output Total 1450 700 Balance -389 -460 Weight 81.6 kg - Lab Result Diagrams: 02/07/21 04:41 02/07/21 04:41 Lab Results-Last 24 Hrs: Lab Results-Last 24 Hours 02/06/21 02/06/21 02/06/21 Range/Units 22:04 22:04 22:04 WBC 12.0 H (4.0-10.5) K/mm3 RBC 4.64 (4.1-5.4) M/mm3 Hgb 13.5 (12.0-16.0) gm/dl Hct 42.5 (35-47) % MCV 91.6 (78-100) fl MCH 29.1 (26-32) pg MCHC 31.8 L (32-36) g/dl RDW 14.3 H (11.5-14.0) % Plt Count 308 (150-450) K/mm3 MPV 11.3 H (7.5-11.0) fl Gran % 61.7 (36.0-66.0) % Eos # (Auto) 0.19 (0-0.5) Absolute Lymphs (auto) 3.36 (1.0-4.6) Absolute Monos (auto) 1.01 (0.0-1.3) Lymphocytes % 28.0 (24.0-44.0) % Monocytes % 8.4 (0.0-12.0) % Eosinophils % 1.6 (0.00-5.0) % Basophils % 0.3 (0.0-0.4) % Absolute Granulocytes 7.41 H (1.4-6.9) Basophils # 0.03 (0-0.4) PT 11.1 (9.95-12.35) SECONDS INR 0.98 (0.8-3.0) APTT 34.1 (25.3-37.0) SECONDS D-Dimer < 215 L (215-500) ng/mL Sodium 138 (137-145) mmol/L Potassium 3.2 L (3.5-5.1) mmol/L Chloride 99 (98-107) mmol/L Carbon Dioxide 29 (22-30) mmol/L Anion Gap 12.8 (5-15) MEQ/L BUN 12 (7-17) mg/dL Creatinine 0.69 (0.52-1.04) mg/dL Estimated GFR > 60.0 ML/MIN Glucose 98 (74-106) mg/dL Calcium 10.0 (8.4-10.2) mg/dL Magnesium 2.1 (1.6-2.3) mg/dL Total Bilirubin 0.20 (0.2-1.3) mg/dL AST 23 (14-36) U/L ALT 23 (0-35) U/L Alkaline Phosphatase 74 (38-126) U/L Troponin I (0.000-0.034) ng/mL NT-Pro-B Natriuret Pep 56.9 (0-450) pg/mL Serum Total Protein 7.7 (6.3-8.2) g/dL Albumin 4.6 (3.5-5.0) g/dL TSH 3rd Generation (0.47-4.68) mIU/L Influenza Type A Ag (NEGATIVE) Influenza Type B Ag (NEGATIVE) RSV (PCR) (Negative) SARS-CoV-2 (PCR) (NEGATIVE) 02/06/21 02/06/21 02/07/21 Range/Units 22:04 22:04 00:35 WBC (4.0-10.5) K/mm3 RBC (4.1-5.4) M/mm3 Hgb (12.0-16.0) gm/dl Hct (35-47) % MCV (78-100) fl MCH (26-32) pg MCHC (32-36) g/dl RDW (11.5-14.0) % Plt Count (150-450) K/mm3 MPV (7.5-11.0) fl Gran % (36.0-66.0) % Eos # (Auto) (0-0.5) Absolute Lymphs (auto) (1.0-4.6) Absolute Monos (auto) (0.0-1.3) Lymphocytes % (24.0-44.0) % Monocytes % (0.0-12.0) % Eosinophils % (0.00-5.0) % Basophils % (0.0-0.4) % Absolute Granulocytes (1.4-6.9) Basophils # (0-0.4) PT (9.95-12.35) SECONDS INR (0.8-3.0) APTT (25.3-37.0) SECONDS D-Dimer (215-500) ng/mL Sodium (137-145) mmol/L Potassium (3.5-5.1) mmol/L Chloride (98-107) mmol/L Carbon Dioxide (22-30) mmol/L Anion Gap (5-15) MEQ/L BUN (7-17) mg/dL Creatinine (0.52-1.04) mg/dL Estimated GFR ML/MIN Glucose (74-106) mg/dL Calcium (8.4-10.2) mg/dL Magnesium (1.6-2.3) mg/dL Total Bilirubin (0.2-1.3) mg/dL AST (14-36) U/L ALT (0-35) U/L Alkaline Phosphatase (38-126) U/L Troponin I < 0.012 (0.000-0.034) ng/mL NT-Pro-B Natriuret Pep (0-450) pg/mL Serum Total Protein (6.3-8.2) g/dL Albumin (3.5-5.0) g/dL TSH 3rd Generation 1.420 (0.47-4.68) mIU/L Influenza Type A Ag NEGATIVE (NEGATIVE) Influenza Type B Ag NEGATIVE (NEGATIVE) RSV (PCR) NEGATIVE (Negative) SARS-CoV-2 (PCR) NEGATIVE (NEGATIVE) 02/07/21 02/07/21 02/07/21 Range/Units 01:37 04:41 04:41 WBC 8.2 (4.0-10.5) K/mm3 RBC 4.28 (4.1-5.4) M/mm3 Hgb 12.5 (12.0-16.0) gm/dl Hct 39.8 (35-47) % MCV 93.0 (78-100) fl MCH 29.2 (26-32) pg MCHC 31.4 L (32-36) g/dl RDW 14.2 H (11.5-14.0) % Plt Count 259 (150-450) K/mm3 MPV 11.2 H (7.5-11.0) fl Gran % 60.5 (36.0-66.0) % Eos # (Auto) 0.15 (0-0.5) Absolute Lymphs (auto) 2.40 (1.0-4.6) Absolute Monos (auto) 0.67 (0.0-1.3) Lymphocytes % 29.2 (24.0-44.0) % Monocytes % 8.1 (0.0-12.0) % Eosinophils % 1.8 (0.00-5.0) % Basophils % 0.4 (0.0-0.4) % Absolute Granulocytes 4.98 (1.4-6.9) Basophils # 0.03 (0-0.4) PT (9.95-12.35) SECONDS INR (0.8-3.0) APTT (25.3-37.0) SECONDS D-Dimer (215-500) ng/mL Sodium (137-145) mmol/L Potassium (3.5-5.1) mmol/L Chloride (98-107) mmol/L Carbon Dioxide (22-30) mmol/L Anion Gap (5-15) MEQ/L BUN (7-17) mg/dL Creatinine (0.52-1.04) mg/dL Estimated GFR ML/MIN Glucose (74-106) mg/dL Calcium (8.4-10.2) mg/dL Magnesium (1.6-2.3) mg/dL Total Bilirubin (0.2-1.3) mg/dL AST (14-36) U/L ALT (0-35) U/L Alkaline Phosphatase (38-126) U/L Troponin I < 0.012 < 0.012 (0.000-0.034) ng/mL NT-Pro-B Natriuret Pep (0-450) pg/mL Serum Total Protein (6.3-8.2) g/dL Albumin (3.5-5.0) g/dL TSH 3rd Generation (0.47-4.68) mIU/L Influenza Type A Ag (NEGATIVE) Influenza Type B Ag (NEGATIVE) RSV (PCR) (Negative) SARS-CoV-2 (PCR) (NEGATIVE) 02/07/21 02/07/21 02/07/21 Range/Units 04:41 07:55 10:40 WBC (4.0-10.5) K/mm3 RBC (4.1-5.4) M/mm3 Hgb (12.0-16.0) gm/dl Hct (35-47) % MCV (78-100) fl MCH (26-32) pg MCHC (32-36) g/dl RDW (11.5-14.0) % Plt Count (150-450) K/mm3 MPV (7.5-11.0) fl Gran % (36.0-66.0) % Eos # (Auto) (0-0.5) Absolute Lymphs (auto) (1.0-4.6) Absolute Monos (auto) (0.0-1.3) Lymphocytes % (24.0-44.0) % Monocytes % (0.0-12.0) % Eosinophils % (0.00-5.0) % Basophils % (0.0-0.4) % Absolute Granulocytes (1.4-6.9) Basophils # (0-0.4) PT (9.95-12.35) SECONDS INR (0.8-3.0) APTT (25.3-37.0) SECONDS D-Dimer (215-500) ng/mL Sodium 138 (137-145) mmol/L Potassium 5.0 D (3.5-5.1) mmol/L Chloride 105 (98-107) mmol/L Carbon Dioxide 30 (22-30) mmol/L Anion Gap 8.1 (5-15) MEQ/L BUN 9 (7-17) mg/dL Creatinine 0.71 (0.52-1.04) mg/dL Estimated GFR > 60.0 ML/MIN Glucose 102 (74-106) mg/dL Calcium 8.7 (8.4-10.2) mg/dL Magnesium (1.6-2.3) mg/dL Total Bilirubin 0.20 (0.2-1.3) mg/dL AST 19 (14-36) U/L ALT 20 (0-35) U/L Alkaline Phosphatase 61 (38-126) U/L Troponin I < 0.012 < 0.012 (0.000-0.034) ng/mL NT-Pro-B Natriuret Pep (0-450) pg/mL Serum Total Protein 6.6 (6.3-8.2) g/dL Albumin 3.9 (3.5-5.0) g/dL TSH 3rd Generation (0.47-4.68) mIU/L Influenza Type A Ag (NEGATIVE) Influenza Type B Ag (NEGATIVE) RSV (PCR) (Negative) SARS-CoV-2 (PCR) (NEGATIVE) - Radiology Exams Ordered Rad Exams-Entire Visit: Radiology Procedures Category Date Time Status CHEST 1 VIEW (PORTABLE) Stat Exams 02/06/21 22:27 Completed Discharge Exam General Appearance: no apparent distress, alert Respiratory Exam: normal breath sounds, lungs clear, No respiratory distress Cardiovascular Exam: regular rate/rhythm, normal heart sounds Gastrointestinal/Abdomen Exam: soft, No tenderness, No mass Extremity Exam: normal inspection, normal range of motion Skin Exam: normal color, warm, dry Final Diagnosis/Problem List - Final Discharge Diagnosis/Problem (1) SVT (supraventricular tachycardia) Current Visit: Yes Status: Acute Assessment & Plan: seen by cardiology, recommend oral beta babak and decrease in adderall dosage, minimize caffeine and f/u in office with him Code(s): I47.1 - SUPRAVENTRICULAR TACHYCARDIA - Discharge Disposition: Home, Self-Care Condition: Stable Prescriptions: New Metoprolol Succinate 25 mg Xl* [Toprol-Xl 25MG Tablets] 25 mg PO DAILY #30 tab Amphet Asp/Amphet/D-Amphet [Dextroamp-Amphet ER 15 mg Cap] 15 mg PO DAILY #30 cap.er.24h MDD 1 Continue Escitalopram Oxalate 10 mg [Lexapro 10 MG] 1 tab PO DAILY Discontinued Dextroamphetamine/Amphetamine [Adderall Xr 30 mg Capsule] 1 tab PO DAILY Additional Instructions: hold adderall, start metoprolol and f/u in office in 1 week. f/u with Dr Liu as directed Follow up with: VIVIENNE DIAZ MD [Primary Care Provider] - 02/13/21 9:00 am
[2021-02-09 07:28] VITALS: O2SAT 100
== END 2021-02-07 16:45 | disposition home or self-care (01) ==
LOC: ED 21:52 → MED SURG 02-07 01:36 → ICU 02-07 01:38
PROVIDERS: ADMIT Family Medicine; ATTEND Family Medicine
DX: I47.1 Supraventricular tachycardia (principal); R07.9 Chest pain, unspecified; R53.83 Other fatigue
CPT/HCPCS: 0241U; 36000; 36415; 71045; 80053; 83735; 83880; 84443; 84484; 85025; 85379; 85610; 85730; 93005; 93041; 93268; 96360; 96365; 99285; 99291; G0378; Q3014; J3475; A9270-GY